=== PATIENT | male | born 1975 | race Caucasian/White ===

== ENCOUNTER 2016-10-16 19:45 | Emergency (ER) | payer OTHER ==
[~2016-10-16] VITALS: Ht 175.2 cm; Wt 83.9 kg
[~2016-10-16 19:45] MED LIST: AFRIN SINUS 1515 ML NAS; ALBUTEROL0.09 MG/A2 IH; ALBUTEROL0.09 MG/A2 INH; ALBUTEROL2.5 MG/0.5 INH; AMOXICILLIN500 MG PO; AZITHROMYC1 GM/PACKE PO; BACTRIM DS 8001 TA1 PO; CATAFLAM50 MG PO; CEPHALEXIN500 M1 PO; CHERATUSSIN AC240 ML PO; CIPRO500 MG PO; CLINDAMYCIN HC300 MG PO; CYCLOBENZAPRINE10 MG PO; DAYPRO600 M1 PO; FLEXERIL10 MG PO; IBU800 M1 PO; LEVAQUIN750 MG PO; LEVOFLOXACIN500 MG PO; MEDROL DOSEPAK4 MG PO; METHADONE10 MG PO; MOTRIN800 MG PO; Motrin,Rufen800 MG PO; NEURONTIN100 MG PO; NEURONTIN300 MG PO; NKHM; NORFLEX100 MG PO; PERCOCET 325 MG1 TA2 PO; PERCOCET 325 MG1 TA3 PO; PERCOCET 325 MG1 TA7 PO; PREDNICOT20 MG PO; PREDNISONE10 MG PO; PREDNISONE20 MG PO; PROAIR HFA0.09 MG/AC IH; PROAIR HFA8.5 GM INH; SKELAXIN800 MG PO; ULTRAM50 MG PO; VENTOLIN H0.09 MG/AC INH; VICODIN 500 MG-1 TAB PO; XANAX0.5 MG PO; ZITHROMAX250 MG PO
[2016-10-16] MEDS ORDERED: FLONASE ALLERG9.9 ML NAS (20:17)
[2016-10-16] MEDS ORDERED: Motrin,Rufen800 MG PO (20:31)
[2016-10-16] MEDS ORDERED: BACTRIM DS 8001 TA1 PO (20:31)
[2016-10-16] MEDS ORDERED: CEFADROXIL500 M1 PO (20:31)
== END 2016-10-16 20:42 | disposition home or self-care (01) ==
LOC: ED 19:45
DX: L02.511 Cutaneous abscess of right hand (principal); F12.10 Cannabis abuse, uncomplicated; F17.200 Nicotine dependence, unspecified, uncomplicated; Z88.8 Allergy status to other drugs, medicaments and biological substances

== ENCOUNTER 2016-10-21 16:35 | Inpatient (IN) | payer OTHER ==
[~2016-10-21] VITALS: Ht 172.7 cm; Wt 77.8 kg
[~2016-10-21 16:35] MED LIST changes: +CEFADROXIL500 M1 PO; +FLONASE ALLERG9.9 ML NAS
[2016-10-21 16:42] VITALS: BP 163/68
[2016-10-21 17:26] LABS: BASO % 0.3 % (0.0-1.0); EOS # 0.1 10*3/uL (0.0-0.4); EOS % 1.2 % (1.0-4.0); HEMATOCRIT 38.4 % (42.0-52.0); LYMPH # 1.9 10*3/uL (1.3-4.4); LYMPH % 31.6 % (27.0-41.0); MEAN CELL VOLUME 87.1 fl (80.0-94.0); MEAN CORPUSCULAR HGB 29.5 pg (27.0-31.0); MEAN CORPUSCULAR HGB CONC 33.9 g/dl (33.0-37.0); MEAN PLATELET VOLUME 9.4 fl (9.6-12.3); MONO # 0.4 10*3/uL (0.1-1.0); MONO % 6.8 % (3.0-9.0); NEUT # 3.5 10*3/uL (2.3-7.9); NEUT % 59.9 % (47.0-73.0); PLATELET COUNT AUTOMATED 285 10*3/uL (130-400); RED BLOOD COUNT 4.41 10*6/uL (4.50-5.90); RED CELL DISTRI WIDTH 12.6 % (0-14.5); WHITE BLOOD COUNT 5.9 10*3/uL (4.8-10.8)
[2016-10-21 17:35] LABS: PROTHROMBIN TIME 10.7 SECONDS (9.0-12.4)
[2016-10-21 17:42] LABS: ALBUMIN 3.6 gm/dl (3.1-4.5); ALKALINE PHOSPHATASE 76 U/L (45-117); BILIRUBIN, TOTAL 0.2 mg/dl (0.2-1.0); BUN 13 mg/dl (7-24); C-REACTIVE PROTEIN 0.83 MG/DL (0-0.3); CARBON DIOXIDE 27 mmol/L (21-32); CHLORIDE 107 mmol/L (98-107); EST GLOM FILT AFRICAN AMERICAN > 60 ml/min; GLUCOSE 105 mg/dL (65-99); POTASSIUM 3.9 mmol/L (3.5-5.1); SGOT/AST 21 IU/L (3-35); SGPT/ALT 21 U/L (12-78); SODIUM 140 mmol/L (136-145); TOTAL PROTEIN 7.1 gm/dL (6.4-8.2)
[2016-10-21 20:00] VITALS: BP 140/78
[2016-10-22] VITALS: BP 122/72
[2016-10-22 06:08] LABS: BASO % 0.5 % (0.0-1.0); EOS # 0.2 10*3/uL (0.0-0.4); EOS % 3.5 % (1.0-4.0); HEMATOCRIT 42.4 % (42.0-52.0); HEMOGLOBIN 14.3 g/dl (14.0-18.0); LYMPH # 2.7 10*3/uL (1.3-4.4); MEAN CELL VOLUME 88.7 fl (80.0-94.0); MEAN CORPUSCULAR HGB 29.9 pg (27.0-31.0); MEAN CORPUSCULAR HGB CONC 33.7 g/dl (33.0-37.0); MEAN PLATELET VOLUME 9.4 fl (9.6-12.3); MONO # 0.5 10*3/uL (0.1-1.0); MONO % 8.5 % (3.0-9.0); NEUT # 2.2 10*3/uL (2.3-7.9); NEUT % 39.3 % (47.0-73.0); PLATELET COUNT AUTOMATED 336 10*3/uL (130-400); RED BLOOD COUNT 4.78 10*6/uL (4.50-5.90); RED CELL DISTRI WIDTH 12.7 % (0-14.5); WHITE BLOOD COUNT 5.7 10*3/uL (4.8-10.8)
[2016-10-22 06:29] LABS: BUN 15 mg/dl (7-24); CARBON DIOXIDE 26 mmol/L (21-32); CHLORIDE 107 mmol/L (98-107); CHOLESTEROL 124 mg/dL (<200); EST GLOM FILT AFRICAN AMERICAN > 60 ml/min; GLUCOSE 91 mg/dL (65-99); HDL CHOLESTEROL 26 mg/dl (40-60); LDL CHOLESTEROL 65 mg/dL (9-159); PHOSPHOROUS 3.5 mg/dL (2.5-4.9); POTASSIUM 4.2 mmol/L (3.5-5.1); SODIUM 141 mmol/L (136-145); TRIGLYCERIDES 164 mg/dl (<150); VLDL CHOLESTEROL 33 mg/dL (6-40)
[2016-10-22 07:34] LABS: HEMOGLOBIN A1c 5.6 % (4.8-5.6)
[2016-10-22 08:00] VITALS: BP 133/71
[2016-10-22 08:43] LABS: FOLIC ACID 12.68 ng/mL (>5.38); VITAMIN D, 25-HYDROXY 33.9 ng/mL (30-100)
[2016-10-22 12:00] VITALS: BP 133/70
[2016-10-22 16:00] VITALS: BP 150/79
== END 2016-10-22 20:01 | disposition left against medical advice (07) | DRG 603 ==
LOC: ED 16:35 → EDHOLD 18:55 → 4E 19:19
PROVIDERS: Internal Medicine
PROC: 0X9J0ZZ Drainage of Right Hand, Open Approach (ICD-10-PCS; principal; 2016-10-21)
DX: L02.511 Cutaneous abscess of right hand (principal); D64.9 Anemia, unspecified; R70.0 Elevated erythrocyte sedimentation rate; R73.9 Hyperglycemia, unspecified; G89.29 Other chronic pain; Z53.21 Procedure and treatment not carried out due to patient leaving prior to being seen by health care provider; F17.200 Nicotine dependence, unspecified, uncomplicated; M54.5 Low back pain; J30.2 Other seasonal allergic rhinitis; Z88.8 Allergy status to other drugs, medicaments and biological substances; Z71.6 Tobacco abuse counseling; Z82.49 Family history of ischemic heart disease and other diseases of the circulatory system; Z79.899 Other long term (current) drug therapy

== ENCOUNTER 2017-02-06 10:55 | Emergency (ER) | payer OTHER ==
[~2017-02-06] VITALS: Ht 172.7 cm; Wt 79.4 kg
[2017-02-06] MEDS ORDERED: BACTRIM 400-801 EACH PO (11:41)
[2017-02-06] MEDS ORDERED: KEFLEX500 M1 PO (11:41)
== END 2017-02-06 11:53 | disposition home or self-care (01) ==
LOC: ED 10:55
DX: L03.115 Cellulitis of right lower limb (principal); F17.200 Nicotine dependence, unspecified, uncomplicated; F14.10 Cocaine abuse, uncomplicated; F12.10 Cannabis abuse, uncomplicated; Z79.899 Other long term (current) drug therapy; Z88.8 Allergy status to other drugs, medicaments and biological substances

== ENCOUNTER 2017-06-04 13:53 | Emergency (ER) | payer OTHER ==
[~2017-06-04] VITALS: Ht 175.2 cm; Wt 81.6 kg
[~2017-06-04 13:53] MED LIST changes: +BACTRIM 400-801 EACH PO; +KEFLEX500 M1 PO
== END 2017-06-04 14:09 | disposition home or self-care (01) ==
LOC: ED 13:53
DX: S30.861A Insect bite (nonvenomous) of abdominal wall, initial encounter (principal); G89.29 Other chronic pain; R73.9 Hyperglycemia, unspecified; F17.210 Nicotine dependence, cigarettes, uncomplicated; F12.10 Cannabis abuse, uncomplicated; Z88.8 Allergy status to other drugs, medicaments and biological substances; Z90.89 Acquired absence of other organs; Z79.899 Other long term (current) drug therapy; W57.XXXA Bitten or stung by nonvenomous insect and other nonvenomous arthropods, initial encounter; Y93.89 Activity, other specified; Y92.89 Other specified places as the place of occurrence of the external cause; Y99.8 Other external cause status

== ENCOUNTER 2018-01-03 14:07 | Emergency (ER) | payer SELFPAY ==
[~2018-01-03] VITALS: Wt 83.9 kg
[2018-01-03] MEDS ORDERED: SUBUTEX (14:20)
== END 2018-01-03 15:38 | disposition home or self-care (01) ==
LOC: ED 14:07
DX: S61.211A Laceration without foreign body of left index finger without damage to nail, initial encounter (principal); F17.200 Nicotine dependence, unspecified, uncomplicated; F12.10 Cannabis abuse, uncomplicated; F14.10 Cocaine abuse, uncomplicated; Z90.89 Acquired absence of other organs; Z79.899 Other long term (current) drug therapy; Z88.8 Allergy status to other drugs, medicaments and biological substances; W45.8XXA Other foreign body or object entering through skin, initial encounter; Y93.89 Activity, other specified; Y92.89 Other specified places as the place of occurrence of the external cause; Y99.9 Unspecified external cause status

== ENCOUNTER → 2018-01-23 | Outpatient (CLI) | payer SELFPAY ==
[~2018-01-23] MED LIST changes: +IBUPROFEN600 MG PO; +SUBUTEX
[2018-01-23 17:05] LABS: ALKALINE PHOSPHATASE 60 U/L (45-117); BILIRUBIN, DIRECT < 0.1 mg/dL (0.0-0.2); SGOT/AST 17 IU/L (3-35); SGPT/ALT 21 U/L (12-78)
== END | disposition home or self-care (01) ==
LOC: LAB 15:51
PROVIDERS: Specialist
DX: F11.20 Opioid dependence, uncomplicated (principal)

== ENCOUNTER 2018-09-03 10:17 | Emergency (ER) | payer SELFPAY ==
[~2018-09-03] VITALS: Ht 175.2 cm; Wt 83.9 kg
[2018-09-03] MEDS ORDERED: CLINDAMYCIN HC300 MG PO (10:47)
[2018-09-11] MEDS ORDERED: LINEZOLID600 MG PO (13:41)
== END 2018-09-03 10:54 | disposition home or self-care (01) ==
LOC: ED 10:17
DX: L03.011 Cellulitis of right finger (principal); F17.200 Nicotine dependence, unspecified, uncomplicated; Z88.8 Allergy status to other drugs, medicaments and biological substances; Z79.899 Other long term (current) drug therapy; Z79.2 Long term (current) use of antibiotics

== ENCOUNTER 2018-09-20 12:21 | Emergency (ER) | payer SELFPAY ==
[~2018-09-20] VITALS: Ht 175.2 cm; Wt 83.9 kg
[~2018-09-20 12:21] MED LIST changes: +LINEZOLID600 MG PO
[2018-09-20] MEDS ORDERED: Bactroban Oint22 GM T (13:06)
== END 2018-09-20 14:19 | disposition home or self-care (01) ==
LOC: ED 12:21
DX: R21 Rash and other nonspecific skin eruption (principal); R22.31 Localized swelling, mass and lump, right upper limb; F17.200 Nicotine dependence, unspecified, uncomplicated; Z88.8 Allergy status to other drugs, medicaments and biological substances; Z98.890 Other specified postprocedural states

== ENCOUNTER 2018-12-12 02:49 | Emergency (ER) | payer SELFPAY ==
[~2018-12-12] VITALS: Ht 175.2 cm; Wt 83.9 kg
[~2018-12-12 02:49] MED LIST changes: +Bactroban Oint22 GM T
[2018-12-12] MEDS ORDERED: DOXYCYCLINE100 M3 PO (03:15)
== END 2018-12-12 03:41 | disposition home or self-care (01) ==
LOC: ED 02:49
DX: L02.411 Cutaneous abscess of right axilla (principal); F17.200 Nicotine dependence, unspecified, uncomplicated; Z88.8 Allergy status to other drugs, medicaments and biological substances; Z86.14 Personal history of Methicillin resistant Staphylococcus aureus infection

== ENCOUNTER 2019-03-09 13:09 | Emergency (ER) | payer SELFPAY ==
[~2019-03-09] VITALS: Ht 175.2 cm; Wt 88.5 kg
[~2019-03-09 13:09] MED LIST changes: +DOXYCYCLINE100 M3 PO
[2019-03-09] MEDS ORDERED: EPIPEN 2-P0.3 MG/0.3 IJ (15:08)
[2019-03-09] MEDS ORDERED: PREDNISONE20 M1 PO (15:08)
== END 2019-03-09 15:17 | disposition home or self-care (01) ==
LOC: ED 13:09
DX: T63.441A Toxic effect of venom of bees, accidental (unintentional), initial encounter (principal); R22.0 Localized swelling, mass and lump, head; H57.11 Ocular pain, right eye; F17.200 Nicotine dependence, unspecified, uncomplicated; Z88.8 Allergy status to other drugs, medicaments and biological substances; Y92.89 Other specified places as the place of occurrence of the external cause

== ENCOUNTER 2019-03-17 17:19 | Emergency (ER) | payer SELFPAY ==
[~2019-03-17] VITALS: Ht 175.2 cm; Wt 88.5 kg
[~2019-03-17 17:19] MED LIST changes: +EPIPEN 2-P0.3 MG/0.3 IJ; +PREDNISONE20 M1 PO
[2019-03-17] MEDS ORDERED: CLINDAMYCIN HC300 MG PO (18:13)
== END 2019-03-17 18:23 | disposition home or self-care (01) ==
LOC: ED 17:19
DX: S09.93XA Unspecified injury of face, initial encounter (principal); F17.200 Nicotine dependence, unspecified, uncomplicated; Z88.8 Allergy status to other drugs, medicaments and biological substances; W21.01XA Struck by football, initial encounter; Y93.61 Activity, american tackle football; Y92.89 Other specified places as the place of occurrence of the external cause; Y99.8 Other external cause status

== ENCOUNTER 2019-09-30 16:35 | Emergency (ER) | payer SELFPAY ==
[~2019-09-30] VITALS: Ht 175.2 cm; Wt 95.3 kg
[2019-09-30] MEDS ORDERED: BACITRACIN 500U30 GM OPH (17:13)
== END 2019-09-30 17:45 | disposition home or self-care (01) ==
LOC: ED 16:35
DX: S61.512A Laceration without foreign body of left wrist, initial encounter (principal); E66.9 Obesity, unspecified; G89.29 Other chronic pain; F17.200 Nicotine dependence, unspecified, uncomplicated; Z88.8 Allergy status to other drugs, medicaments and biological substances; Z79.2 Long term (current) use of antibiotics; Z86.14 Personal history of Methicillin resistant Staphylococcus aureus infection; W22.8XXA Striking against or struck by other objects, initial encounter; Y93.89 Activity, other specified; Y92.89 Other specified places as the place of occurrence of the external cause; Y99.8 Other external cause status

== ENCOUNTER 2020-07-22 18:08 | Emergency (ER) | payer SELFPAY ==
[~2020-07-22 18:08] MED LIST changes: +BACITRACIN 500U30 GM OPH
== END 2020-07-22 18:50 | disposition left against medical advice (07) ==
LOC: ED 18:08
DX: R10.9 Unspecified abdominal pain (principal); Z53.21 Procedure and treatment not carried out due to patient leaving prior to being seen by health care provider

== ENCOUNTER 2020-07-23 09:10 | Emergency (ER) | payer MEDICAID ==
[~2020-07-23] VITALS: Wt 95.3 kg
[2020-07-23 09:50] LABS: BASO % 0.3 % (0.0-1.0); EOS # 0.1 10*3/uL (0.0-0.4); EOS % 1.9 % (1.0-4.0); HEMATOCRIT 47.8 % (42.0-52.0); LYMPH # 1.6 10*3/uL (1.3-4.4); LYMPH % 24.1 % (27.0-41.0); MEAN CELL VOLUME 88.8 fl (80.0-94.0); MEAN CORPUSCULAR HGB 28.6 pg (27.0-31.0); MEAN CORPUSCULAR HGB CONC 32.2 g/dl (33.0-37.0); MEAN PLATELET VOLUME 9.6 fl (9.6-12.3); MONO # 0.5 10*3/uL (0.1-1.0); MONO % 7.8 % (3.0-9.0); NEUT # 4.2 10*3/uL (2.3-7.9); NEUT % 65.7 % (47.0-73.0); PLATELET COUNT AUTOMATED 260 10*3/uL (130-400); RED BLOOD COUNT 5.38 10*6/uL (4.50-5.90); RED CELL DISTRI WIDTH 12.9 % (0-14.5); WHITE BLOOD COUNT 6.4 10*3/uL (4.8-10.8)
[2020-07-23 10:00] LABS: BILIRUBIN Negative (Negative); BLOOD Trace-Lysed (Negative); CLARITY Clear (Clear); COLOR Yellow (Yellow); GLUCOSE Negative (Negative); KETONE Trace (Negative); LEUKO ESTERASE Trace (Negative); NITRITE Negative (Negative); PH 5.5 (4.5-8.0); SPECIFIC GRAVITY >= 1.030 (1.001-1.030)
[2020-07-23 10:08] LABS: URINE AMPHETAMINES < 1000 (1000ng/ml); URINE BARBITURATES < 200 (200ng/ml); URINE BENZODIAZEPINES < 200 (200ng/ml); URINE CANNABINOIDS (THC) > 50 (50ng/ml); URINE COCAINE < 300 (300ng/ml); URINE METHADONE < 300 (300ng/ml); URINE OPIATES < 300 (300ng/ml)
[2020-07-23 10:10] LABS: ALBUMIN 3.6 gm/dl (3.1-4.5); ALKALINE PHOSPHATASE 78 U/L (45-117); BUN 10 mg/dl (7-24); CHLORIDE 106 mmol/L (98-107); CREATININE 0.99 mg/dL (0.70-1.30); LIPASE 53 U/L (73-393); POTASSIUM 4.2 mmol/L (3.5-5.1); SGOT/AST 15 IU/L (3-35); SGPT/ALT 27 U/L (12-78); SODIUM 138 mmol/L (136-145); TOTAL PROTEIN 7.3 gm/dL (6.4-8.2)
[2020-07-23 10:12] LABS: URINE PHENCYCLIDINE < 25 (25ng/ml)
[2020-07-23 10:13] LABS: BACTERIA 1+
== END 2020-07-23 11:09 | disposition home or self-care (01) ==
LOC: ED 09:10
PROVIDERS: Emergency Medicine
DX: K37 Unspecified appendicitis (principal); K80.80 Other cholelithiasis without obstruction; R10.31 Right lower quadrant pain; F17.200 Nicotine dependence, unspecified, uncomplicated; F11.10 Opioid abuse, uncomplicated; F12.10 Cannabis abuse, uncomplicated; Z90.89 Acquired absence of other organs; Z88.8 Allergy status to other drugs, medicaments and biological substances

== ENCOUNTER 2021-09-27 20:23 | Emergency (ER) | payer OTHER ==
[~2021-09-27] VITALS: Ht 172.7 cm; Wt 95.8 kg
[2021-09-27 20:52] LABS: BASO % 0.5 % (0.0-1.0); EOS % 0.2 % (1.0-4.0); HEMATOCRIT 44.2 % (42.0-52.0); LYMPH # 1.5 10*3/uL (1.3-4.4); LYMPH % 33.3 % (27.0-41.0); MEAN CELL VOLUME 88.4 fl (80.0-94.0); MEAN CORPUSCULAR HGB 30.4 pg (27.0-31.0); MEAN CORPUSCULAR HGB CONC 34.4 g/dl (33.0-37.0); MEAN PLATELET VOLUME 10.1 fl (9.6-12.3); MONO # 0.6 10*3/uL (0.1-1.0); MONO % 13.5 % (3.0-9.0); NEUT # 2.3 10*3/uL (2.3-7.9); PLATELET COUNT AUTOMATED 182 10*3/uL (130-400); RED CELL DISTRI WIDTH 13.2 % (0-14.5); WHITE BLOOD COUNT 4.4 10*3/uL (4.8-10.8)
[2021-09-27 21:05] LABS: ACT PARTIAL THROMBO TIME 31.7 SECONDS (20.0-32.1)
[2021-09-27 21:12] LABS: ALKALINE PHOSPHATASE 93 U/L (45-117); BUN 22 mg/dl (7-24); CHLORIDE 107 mmol/L (98-107); CREATININE 0.99 mg/dL (0.70-1.30); POTASSIUM 4.2 mmol/L (3.5-5.1); SGOT/AST 34 IU/L (3-35); SGPT/ALT 46 U/L (12-78); SODIUM 138 mmol/L (136-145)
== END 2021-09-28 00:49 | disposition home or self-care (01) ==
LOC: ED 20:23
PROVIDERS: Emergency Medicine
DX: R07.9 Chest pain, unspecified (principal); Z90.89 Acquired absence of other organs; Z98.890 Other specified postprocedural states; Z87.891 Personal history of nicotine dependence

== ENCOUNTER 2021-11-25 08:22 | Emergency (ER) | payer OTHER ==
[~2021-11-25] VITALS: Wt 86.2 kg
== END 2021-11-25 10:10 | disposition left against medical advice (07) ==
LOC: ED 08:22
DX: M79.671 Pain in right foot (principal); Z90.89 Acquired absence of other organs; Z87.891 Personal history of nicotine dependence; W22.8XXA Striking against or struck by other objects, initial encounter; Y93.89 Activity, other specified; Y92.89 Other specified places as the place of occurrence of the external cause; Y99.8 Other external cause status

== ENCOUNTER 2022-02-21 08:58 | Emergency (ER) | payer OTHER ==
[~2022-02-21] VITALS: Ht 172.7 cm; Wt 86.2 kg
[2022-02-21 09:40] LABS: BASO % 0.4 % (0.0-1.0); EOS # 0.4 10*3/uL (0.0-0.4); EOS % 5.3 % (1.0-4.0); LYMPH # 2.1 10*3/uL (1.3-4.4); LYMPH % 28.7 % (27.0-41.0); MEAN CELL VOLUME 90.2 fl (80.0-94.0); MEAN CORPUSCULAR HGB 30.3 pg (27.0-31.0); MEAN CORPUSCULAR HGB CONC 33.6 g/dl (33.0-37.0); MEAN PLATELET VOLUME 9.5 fl (9.6-12.3); MONO # 0.6 10*3/uL (0.1-1.0); MONO % 7.7 % (3.0-9.0); NEUT # 4.2 10*3/uL (2.3-7.9); NEUT % 57.5 % (47.0-73.0); PLATELET COUNT AUTOMATED 231 10*3/uL (130-400); RED BLOOD COUNT 5.21 10*6/uL (4.50-5.90); RED CELL DISTRI WIDTH 12.9 % (0-14.5); WHITE BLOOD COUNT 7.4 10*3/uL (4.8-10.8)
[2022-02-21 09:56] LABS: ALKALINE PHOSPHATASE 83 U/L (45-117); BUN 11 mg/dl (7-24); CHLORIDE 105 mmol/L (98-107); CREATININE 0.91 mg/dL (0.70-1.30); LIPASE 80 U/L (73-393); POTASSIUM 3.9 mmol/L (3.5-5.1); SGOT/AST 36 IU/L (3-35); SGPT/ALT 35 U/L (12-78); SODIUM 140 mmol/L (136-145); TOTAL PROTEIN 7.2 gm/dL (6.4-8.2)
== END 2022-02-21 13:35 | disposition home or self-care (01) ==
LOC: ED 08:58
PROVIDERS: Emergency Medicine
DX: S52.122A Displaced fracture of head of left radius, initial encounter for closed fracture (principal); Z88.8 Allergy status to other drugs, medicaments and biological substances; Z87.891 Personal history of nicotine dependence; W11.XXXA Fall on and from ladder, initial encounter; Y93.89 Activity, other specified; Y92.89 Other specified places as the place of occurrence of the external cause; Y99.8 Other external cause status

== ENCOUNTER 2022-09-07 02:22 | Emergency (ER) | payer OTHER ==
[~2022-09-07] VITALS: Ht 182.8 cm; Wt 108.9 kg
[2022-09-07] MEDS ORDERED: PREDNISONE20 M1 PO (03:16)
[2022-09-07] MEDS ORDERED: ZITHROMAX250 MG PO (03:16)
[2022-09-07] MEDS ORDERED: ONDANSETRON4 MG SL (03:16)
== END 2022-09-07 03:45 | disposition home or self-care (01) ==
LOC: ED 02:22
DX: B34.9 Viral infection, unspecified (principal); Z20.822 Contact with and (suspected) exposure to COVID-19; Z88.8 Allergy status to other drugs, medicaments and biological substances; Z90.89 Acquired absence of other organs; F17.200 Nicotine dependence, unspecified, uncomplicated

== ENCOUNTER 2025-02-21 13:31 | Emergency (ER) | payer OTHER ==
[~2025-02-21] VITALS: Ht 172.7 cm; Wt 104.3 kg
[~2025-02-21 13:31] MED LIST changes: +ONDANSETRON4 MG SL
[2025-02-21] MEDS ORDERED: SUBLOCADE300 MG/1.5 SQ (14:22)
[2025-02-21] MEDS ORDERED: diphenhydrAMINE hydrochloride 25 MG CAP PO ONE (15:05)
== END 2025-02-21 15:24 | disposition left against medical advice (07) ==
LOC: ED 13:31
DX: R03.0 Elevated blood-pressure reading, without diagnosis of hypertension (principal); K08.89 Other specified disorders of teeth and supporting structures; R20.0 Anesthesia of skin; Z53.21 Procedure and treatment not carried out due to patient leaving prior to being seen by health care provider

== ENCOUNTER 2025-05-09 12:58 | Emergency (ER) | payer OTHER ==
[~2025-05-09] VITALS: Ht 175.2 cm; Wt 108.9 kg
[~2025-05-09 12:58] MED LIST changes: +SUBLOCADE300 MG/1.5 SQ
[2025-05-09 13:38] LABS: BASO # 0.0 10*3/uL (0.0-0.1); BASO % 0.3 % (0.0-1.0); EOS # 0.1 10*3/uL (0.0-0.4); EOS % 0.8 % (1.0-4.0); MEAN CELL VOLUME 89.7 fl (80.0-94.0); MEAN CORPUSCULAR HGB 29.5 pg (27.0-31.0); MEAN PLATELET VOLUME 9.4 fl (9.6-12.3); MONO # 0.5 10*3/uL (0.1-1.0); MONO % 7.3 % (3.0-9.0); NEUT # 5.1 10*3/uL (2.3-7.9); NEUT % 69.9 % (47.0-73.0); NUCLEATED RED BLOOD CELL 0.0 % (0.0-0.0); NUCLEATED RED BLOOD CELL 0.0 10*3/uL (0.0-0.0); PLATELET COUNT AUTOMATED 258 10*3/uL (130-400); RED CELL DISTRI WIDTH 13.0 % (0-14.5)
[2025-05-09 13:53] LABS: URINE AMPHETAMINES Negative (1000ng/ml); URINE BARBITURATES Negative (200ng/ml); URINE BENZODIAZEPINES Positive (200ng/ml); URINE CANNABINOIDS (THC) Positive (50ng/ml); URINE COCAINE Negative (300ng/ml); URINE METHADONE Negative (300ng/ml); URINE OPIATES Negative (300ng/ml); URINE PHENCYCLIDINE Negative (25ng/ml)
[2025-05-09 14:02] LABS: BUN 9 mg/dl (9-23); CPK 92 U/L (34-171); ETHYL ALCOHOL 3.1 mg/dl (<3)
[2025-05-09] MEDS ORDERED: VISTARIL25 MG PO (14:50)
== END 2025-05-09 15:00 | disposition home or self-care (01) ==
LOC: ED 12:58
PROVIDERS: Nurse Practitioner Family
DX: F41.1 Generalized anxiety disorder (principal); F17.210 Nicotine dependence, cigarettes, uncomplicated; Z90.89 Acquired absence of other organs; Z88.8 Allergy status to other drugs, medicaments and biological substances